=== PATIENT | female | born 1990 | race Caucasian/White ===

== ENCOUNTER 2017-12-16 12:00 | Inpatient (IN) | payer MEDICAID, OTHER ==
[~2017-12-16] VITALS: Ht 165.1 cm; Wt 87.5 kg
[2017-12-16] VITALS (11 sets, daily range): BP systolic 124–134; BP diastolic 81–96
[~2017-12-16 12:00] MED LIST: KEPP500 PO
[2017-12-16] MEDS ORDERED: LORAZEPAM 2MG/ML CPJ IV ONE ×3 (12:15→14:45)
[2017-12-16] MEDS ORDERED: LORAZEPAM 2MG/ML CPJ ONE ×2 (12:18→14:40)
[2017-12-16] MEDS ORDERED: SODIUM CHLORIDE 0.9% 1,000 ML IV ONE (12:18)
[2017-12-16 12:43] LABS: BASOPHILS % 0.8 % (0.0-2.0); EOSINOPHILS % 0.6 % (0.0-5.0); HEMATOCRIT. 38.9 % (36.0-48.0); HEMOGLOBIN. 13.5 g/dL (12.0-16.0); LYMPHOCYTES % 34.2 % (20.0-50.0); MEAN CORPUSCULAR HEMOGLOBIN 30.8 pg (28.0-32.0); MEAN CORPUSCULAR VOLUME 88.6 fL (81.0-99.0); MEAN PLATELET VOLUME 8.4 fl (7.4-10.4); MONOCYTES % 6.4 % (2.0-8.0); PLATELET 339 x1000/uL (130-400); RED BLOOD CELL COUNT 4.39 mill/uL (4.2-5.4); RED CELL DISTRIBUTION WIDTH 12.8 % (11.6-14.6)
[2017-12-16 12:50] LABS: PROTHROMBIN TIME 10.4 sec (9.1-11.1)
[2017-12-16 12:51] LABS: HCG SCREEN NEGATIVE
[2017-12-16 12:52] LABS: CHLORIDE 108 mEq/L (98-107)
[2017-12-16 13:04] LABS: CREATINE KINASE 64 IU/L (26-192); ETHANOL BLOOD < 10 mg/dL
[2017-12-16 13:07] LABS: CARBAMAZEPINE < 0.5 ug/mL (4-12); PHENOBARBITAL < 2.1 ug/mL (15.0-40.0); VALPROIC ACID < 3.0 ug/mL (50-100)
[2017-12-16] MEDS ORDERED: LEVETIRACETAM 1000MG/100ML 100 ML IV ONE (13:15)
[2017-12-16] MEDS ORDERED: PHENYTOIN SODIUM 1000MG in SODIUM CHLORIDE 0.9% 100ML IV NR (14:00)
[2017-12-16] MEDS ORDERED: MIDAZOLAM HCL 50 MG in DEXTROSE 5% WATER 40 ML IV ONE (14:30)
[2017-12-16] MEDS ORDERED: PROPOFOL 10MG/ML 100ML 100 ML IV ONE (14:30)
[2017-12-16] MEDS ORDERED: ETOMIDATE 2MG/ML 10ML VIAL IV ONE (14:30)
[2017-12-16] MEDS ORDERED: SUCCINYLCHOLINE CHLORIDE 200MG/10ML IV ONE (14:30)
[2017-12-16] MEDS ORDERED: FENTANYL CITRATE/PF 50MCG/ML 2ML VIAL IV ONE (15:00)
[2017-12-16] MEDS ORDERED: LORAZEPAM 2MG/ML CPJ IV PRN (15:15)
[2017-12-16 16:02] LABS: BG BASE EXCESS -3.2 mmol/L (-2.0-2.0); BG CARBOXYHEMOGLOBIN 0.3 % (0.5-1.5); BG DEOXYHEMOGLOBIN 0.7 % (0.0-5.0); BG FRACTION INSPIRED OXYGEN 100; BG HCO3 ACT 21.5 mmol/L (22.0-26.0); BG METHEMOGLOBIN 0.3 % (0.0-1.5); BG OXYGEN SATURATION 99.3 % (92.0-98.5); BG OXYHEMOGLOBIN 98.7 % (94.0-97.0); BG PCO2 37.3 mmHg (35.0-45.0); BG PH 7.378 (7.350-7.450); BG PO2 392.5 mmHg (75.0-100.0); BG SAMPLE SITE RIGHT RADIAL; BG TIDAL VOLUME(mL) 450 mL; BG VENT MODE VENT - A/C; BG VENT RATE 14 set
[2017-12-16 16:21] LABS: CLARITY URINE CLEAR (CLEAR); COLOR URINE YELLOW (YELLOW); KETONES URINE TRACE (NEGATIVE); LEUKOCYTE ESTERASE URINE NEGATIVE (NEGATIVE); NITRITE URINE NEGATIVE (NEGATIVE); OCCULT BLOOD URINE NEGATIVE (NEGATIVE); PH URINE 5.5 (4.5-8.0); PROTEIN URINE NEGATIVE (NEGATIVE); SPECIFIC GRAVITY URINE 1.023 (1.005-1.030); UROBILINOGEN URINE 0.2 E.U./dL (0.2-1.0)
[2017-12-16 16:34] LABS: *AMPHETAMINES SCREEN URINE NEGATIVE (NEGATIVE); *BARBITURATES SCREEN URINE NEGATIVE (NEGATIVE); *BENZODIAZEPINES SCREEN URINE NEGATIVE (NEGATIVE); *COCAINE SCREEN URINE NEGATIVE (NEGATIVE); METHADONE URINE SCREEN NEGATIVE (NEGATIVE); OPIATES URINE SCREEN NEGATIVE (NEGATIVE); PHENCYCLIDINE URINE SCREEN NEGATIVE (NEGATIVE)
[2017-12-16 16:56] LABS: CANNABINOID URINE SCREEN PRESUMTIVE POSITIVE (NEGATIVE)
[2017-12-16] MEDS ORDERED: IPRATROPIUM/ALBUTEROL 0.5-3(2.5)MG/3ML NEB HHN SCH (18:00)
[2017-12-16] MEDS: LEVETIRACETAM 500 MG in SODIUM CHLORIDE 0.9% 100 ML IV SCH (20:03)
[2017-12-16] MEDS: PROPOFOL 10MG/ML 100ML 100 ML IV PRN (20:08)
[2017-12-16] MEDS: PHENYTOIN SODIUM EXTENDED 100MG CAPSULE PO SCH (21:12)
[2017-12-16] MEDS: IPRATROPIUM/ALBUTEROL 0.5-3(2.5)MG/3ML NEB HHN PRN (22:09)
[2017-12-17] VITALS (44 sets, daily range): BP systolic 113–149; BP diastolic 57–100
[2017-12-17] MEDS: PROPOFOL 10MG/ML 100ML 100 ML IV PRN ×3 (01:53→13:47)
[2017-12-17] MEDS: IPRATROPIUM/ALBUTEROL 0.5-3(2.5)MG/3ML NEB HHN PRN (04:32)
[2017-12-17 05:42] LABS: BASOPHILS % 0.4 % (0.0-2.0); EOSINOPHILS % 0.2 % (0.0-5.0); HEMATOCRIT. 38.1 % (36.0-48.0); HEMOGLOBIN. 13.1 g/dL (12.0-16.0); LYMPHOCYTES % 15.7 % (20.0-50.0); MEAN CORPUSCULAR HEMOGLOBIN 30.5 pg (28.0-32.0); NEUTROPHILS % 76.7 % (40.0-76.0); PLATELET 305 x1000/uL (130-400); RED BLOOD CELL COUNT 4.28 mill/uL (4.2-5.4)
[2017-12-17 05:55] LABS: CHLORIDE 110 mEq/L (98-107)
[2017-12-17] MEDS: LEVETIRACETAM 500 MG in SODIUM CHLORIDE 0.9% 100 ML IV SCH (06:01)
[2017-12-17] MEDS: PHENYTOIN SODIUM EXTENDED 100MG CAPSULE PO SCH ×3 (06:01→22:22)
[2017-12-17] MEDS ORDERED: PROPOFOL 10MG/ML 100ML 100 ML IV PRN ×3 (09:00→12:15)
[2017-12-17] MEDS ORDERED: POTASSIUM CHLORIDE INJ 40 MEQ in DEXT 5% WATER 250 ML IV SCH (09:00)
[2017-12-17 09:02] LABS: BG BASE EXCESS -1.2 mmol/L (-2.0-2.0); BG CARBOXYHEMOGLOBIN 0.2 % (0.5-1.5); BG DEOXYHEMOGLOBIN 2.9 % (0.0-5.0); BG FRACTION INSPIRED OXYGEN 40; BG HCO3 ACT 21.8 mmol/L (22.0-26.0); BG METHEMOGLOBIN 0.3 % (0.0-1.5); BG OXYGEN SATURATION 97.1 % (92.0-98.5); BG OXYHEMOGLOBIN 96.6 % (94.0-97.0); BG PCO2 31.9 mmHg (35.0-45.0); BG PH 7.453 (7.350-7.450); BG PO2 89.3 mmHg (75.0-100.0); BG SAMPLE SITE RIGHT RADIAL; BG TIDAL VOLUME(mL) 450 mL; BG VENT MODE VENT - A/C; BG VENT RATE 14 set
[2017-12-17] MEDS: CEFEPIME 1,000 MG in DEXTROSE 5% WATER 50 ML IV SCH ×2 (09:48→21:36)
[2017-12-17] MEDS: METRONIDAZOLE 500 MG PREMIX 100 ML IV SCH ×2 (09:49→18:02)
[2017-12-17] MEDS: PANTOPRAZOLE SODIUM 40 MG/VIAL IV SCH (10:25)
[2017-12-17] MEDS: ACETAMINOPHEN 325MG TABLET PO PRN ×2 (10:25→18:02)
[2017-12-17] MEDS ORDERED: IPRATROPIUM/ALBUTEROL 0.5-3(2.5)MG/3ML NEB HHN PRN (13:45)
[2017-12-17] MEDS: IPRATROPIUM/ALBUTEROL 0.5-3(2.5)MG/3ML NEB HHN SCH ×2 (17:14→21:33)
[2017-12-17] MEDS: ACETYLCYSTEINE 100MG/ML 10% VIAL 4ML INH SCH (17:14)
[2017-12-17] MEDS: LAMOTRIGINE 25MG TABLET PO SCH (22:22)
[2017-12-18] VITALS (47 sets, daily range): BP systolic 93–138; BP diastolic 38–95
[2017-12-18] MEDS: METRONIDAZOLE 500 MG PREMIX 100 ML IV SCH ×3 (01:00→17:16)
[2017-12-18] MEDS: IPRATROPIUM/ALBUTEROL 0.5-3(2.5)MG/3ML NEB HHN SCH ×5 (02:11→19:58)
[2017-12-18] MEDS: ACETYLCYSTEINE 100MG/ML 10% VIAL 4ML INH SCH ×3 (02:11→16:31)
[2017-12-18] MEDS: PROPOFOL 10MG/ML 100ML 100 ML IV PRN ×3 (04:53→08:45)
[2017-12-18] MEDS: PHENYTOIN SODIUM EXTENDED 100MG CAPSULE PO SCH ×2 (06:19→13:14)
[2017-12-18 06:22] LABS: BASOPHILS % 0.5 % (0.0-2.0); EOSINOPHILS % 0.5 % (0.0-5.0); HEMATOCRIT. 38.2 % (36.0-48.0); HEMOGLOBIN. 12.9 g/dL (12.0-16.0); LYMPHOCYTES % 15.2 % (20.0-50.0); MEAN CORPUSCULAR HEMOGLOBIN 30.7 pg (28.0-32.0); MEAN CORPUSCULAR VOLUME 90.9 fL (81.0-99.0); MEAN PLATELET VOLUME 9.3 fl (7.4-10.4); MONOCYTES % 8.1 % (2.0-8.0); NEUTROPHILS % 75.7 % (40.0-76.0); PLATELET 285 x1000/uL (130-400); RED BLOOD CELL COUNT 4.21 mill/uL (4.2-5.4); RED CELL DISTRIBUTION WIDTH 13.3 % (11.6-14.6)
[2017-12-18 07:12] LABS: CHLORIDE 108 mEq/L (98-107)
[2017-12-18] MEDS ORDERED: PROPOFOL 1000MG/100ML VIAL IV ONE (07:33)
[2017-12-18] MEDS: CEFEPIME 1,000 MG in DEXTROSE 5% WATER 50 ML IV SCH ×2 (09:20→21:40)
[2017-12-18] MEDS: PANTOPRAZOLE SODIUM 40 MG/VIAL IV SCH (09:27)
[2017-12-18] MEDS: LAMOTRIGINE 25MG TABLET PO SCH ×2 (09:27→17:16)
[2017-12-18] MEDS ORDERED: LIDOCAINE HCL/PF 1% 2ML VIAL ONE (10:31)
[2017-12-18] MEDS ORDERED: POTASSIUM CHLORIDE INJ 40 MEQ in DEXT 5% WATER 250 ML IV NR (12:00)
[2017-12-18] MEDS: RISPERIDONE 0.5MG TABLET PO SCH ×2 (12:00→17:16)
[2017-12-18 12:19] LABS: BG BASE EXCESS 1.4 mmol/L (-2.0-2.0); BG CARBOXYHEMOGLOBIN 0.1 % (0.5-1.5); BG DEOXYHEMOGLOBIN 1.1 % (0.0-5.0); BG FRACTION INSPIRED OXYGEN 45; BG HCO3 ACT 25.8 mmol/L (22.0-26.0); BG METHEMOGLOBIN 0.3 % (0.0-1.5); BG OXYGEN SATURATION 98.9 % (92.0-98.5); BG OXYHEMOGLOBIN 98.5 % (94.0-97.0); BG PH 7.427 (7.350-7.450); BG PRESSURE SUPPORT 8; BG SAMPLE SITE RIGHT RADIAL; BG TOTAL HEMOGLOBIN 12.6 g/dL (12.0-18.0); BG VENT MODE VENT - CPAP
[2017-12-18] MEDS: PHENYTOIN 100 MG/4 ML UDC NG SCH ×2 (15:09→21:41)
[2017-12-18] MEDS: ACETAMINOPHEN 325MG TABLET PO PRN (17:16)
[2017-12-19] VITALS (17 sets, daily range): BP systolic 87–112; BP diastolic 43–76
[2017-12-19] MEDS: ACETYLCYSTEINE 100MG/ML 10% VIAL 4ML INH SCH ×3 (00:26→16:35)
[2017-12-19] MEDS: IPRATROPIUM/ALBUTEROL 0.5-3(2.5)MG/3ML NEB HHN SCH ×5 (00:27→20:27)
[2017-12-19] MEDS: METRONIDAZOLE 500 MG PREMIX 100 ML IV SCH ×3 (03:04→16:58)
[2017-12-19] MEDS: ACETAMINOPHEN 325MG TABLET PO PRN (03:18)
[2017-12-19] MEDS: PHENYTOIN 100 MG/4 ML UDC NG SCH ×3 (06:51→23:44)
[2017-12-19] MEDS: CEFEPIME 1,000 MG in DEXTROSE 5% WATER 50 ML IV SCH ×2 (08:54→23:43)
[2017-12-19] MEDS: PANTOPRAZOLE SODIUM 40 MG/VIAL IV SCH (08:55)
[2017-12-19] MEDS: RISPERIDONE 0.5MG TABLET PO SCH (09:17)
[2017-12-19] MEDS: LAMOTRIGINE 25MG TABLET PO SCH ×2 (09:17→16:58)
[2017-12-19] MEDS ORDERED: LORAZEPAM 2MG/ML CPJ IV PRN (11:15)
[2017-12-20] VITALS: BP 109/68
[2017-12-20] MEDS: IPRATROPIUM/ALBUTEROL 0.5-3(2.5)MG/3ML NEB HHN SCH ×3 (00:11→11:41)
[2017-12-20] MEDS: METRONIDAZOLE 500 MG PREMIX 100 ML IV SCH ×2 (01:00→10:27)
[2017-12-20] MEDS ORDERED: PROMETHAZINE/DEXTROMETHORPHAN 6.25-15MG/5ML BOTTLE 120ML PO PRN (02:00)
[2017-12-20] MEDS ORDERED: THROAT LOZENGES-BENZOCAINE/MENTH/CETYLPYRD CL LOZENGES MM PRN (02:00)
[2017-12-20 04:00] VITALS: BP 99/61
[2017-12-20 06:20] LABS: BASOPHILS % 0.8 % (0.0-2.0); EOSINOPHILS % 2.9 % (0.0-5.0); HEMATOCRIT. 33.7 % (36.0-48.0); HEMOGLOBIN. 11.7 g/dL (12.0-16.0); LYMPHOCYTES % 37.2 % (20.0-50.0); MEAN CORPUSCULAR HEMOGLOBIN 31.1 pg (28.0-32.0); MEAN CORPUSCULAR VOLUME 89.7 fL (81.0-99.0); MEAN PLATELET VOLUME 8.7 fl (7.4-10.4); MONOCYTES % 7.8 % (2.0-8.0); NEUTROPHILS % 51.3 % (40.0-76.0); PLATELET 307 x1000/uL (130-400); RED BLOOD CELL COUNT 3.76 mill/uL (4.2-5.4); RED CELL DISTRIBUTION WIDTH 13.1 % (11.6-14.6)
[2017-12-20 07:05] LABS: CHLORIDE 107 mEq/L (98-107)
[2017-12-20 07:11] LABS: PHOSPHORUS 3.4 mg/dL (2.5-4.9)
[2017-12-20] MEDS: PHENYTOIN 100 MG/4 ML UDC NG SCH (07:30)
[2017-12-20 08:00] VITALS: BP 104/64
[2017-12-20] MEDS: PANTOPRAZOLE SODIUM 40 MG/VIAL IV SCH (08:55)
[2017-12-20] MEDS: CEFEPIME 1,000 MG in DEXTROSE 5% WATER 50 ML IV SCH (08:55)
[2017-12-20] MEDS: LAMOTRIGINE 25MG TABLET PO SCH (09:38)
[2017-12-20] MEDS ORDERED: BENZONATATE 100MG CAPSULE PO PRN (10:00)
[2017-12-20 12:00] VITALS: BP 114/75
[2017-12-20] MEDS ORDERED: AZITHROMYCIN 500MG in DEXTROSE 5% WATER 250ML IV SCH (13:00)
[2017-12-20 13:33] VITALS: BP 114/75
== END 2017-12-20 13:50 | disposition home or self-care (01) | DRG 720 ==
LOC: ER 12:00 → EDBEDREQTM 13:47 → EDBEDREQSVC 13:47 → EDBEDREQ 13:47 → EDBEDREQTM 14:16 → EDBEDREQ 14:16 → MICUNO 14:27 → EDBEDREQTM 14:30 → EDBEDREQ 14:30 → EDBEDREQSVC 14:30 → ENRESERV 15:40 → CANBEDREQ 16:18 → 6EST 12-19 19:45
PROVIDERS: ADMIT Internal Medicine Nephrology; ATTEND Internal Medicine Nephrology
PROC: 5A1945Z Respiratory Ventilation, 24-96 Consecutive Hours (ICD-10-PCS; principal; 2017-12-16)
PROC: 0BH18EZ Insertion of Endotracheal Airway into Trachea, Via Natural or Artificial Opening Endoscopic (ICD-10-PCS; 2017-12-16)
PROC: 4A10X4Z Monitoring of Central Nervous Electrical Activity, External Approach (ICD-10-PCS; 2017-12-20)
DX: A41.9 Sepsis, unspecified organism (principal); J96.00 Acute respiratory failure, unspecified whether with hypoxia or hypercapnia; J69.0 Pneumonitis due to inhalation of food and vomit; E87.6 Hypokalemia; G40.901 Epilepsy, unspecified, not intractable, with status epilepticus; J98.11 Atelectasis; G40.411 Other generalized epilepsy and epileptic syndromes, intractable, with status epilepticus; F12.90 Cannabis use, unspecified, uncomplicated; E87.8 Other disorders of electrolyte and fluid balance, not elsewhere classified; E66.9 Obesity, unspecified; I51.7 Cardiomegaly; Z82.49 Family history of ischemic heart disease and other diseases of the circulatory system; Z90.49 Acquired absence of other specified parts of digestive tract; Z88.5 Allergy status to narcotic agent; Z68.32 Body mass index [BMI] 32.0-32.9, adult; Z71.3 Dietary counseling and surveillance
CPT/HCPCS: 31500; 36415; 36600; 71045; 80048; 80156; 80165; 80184; 80185; 80305; 81025; 82375; 82550; 82805; 82962; 83735; 84100; 84443; 84478; 84703; 87070; 87077; 92610; 93970; 94003; 94640; 96365; 96375; 97162; 99291; C9113; G0482; J0456; J0692; J1165; J1953; J2060; J2250; J2704; J3010; J3480; J3490; J7030; J7040; J7050; J7060; J7608; J7620